=== PATIENT | male | born 1990 ===

== ENCOUNTER 2018-09-07 14:39 | Emergency (ER) | payer MEDICAID, OTHER ==
[2018-09-07 14:54] VITALS: RESP 18
--- NOTE | 2018-09-07 15:26 | C.PDOC ---
History Of Present Illness 28 y/o male presents to ED with c/o chronic low back pain for 5 months after injury at work. Patient states pain has been worse for 1 week radiating to left leg and denies taking pain medication, new injury, sensory changes, dysuria, bowel/bladder incontinence or any other complaints at this time. Time Seen by Provider: 09/07/18 14:50 Chief Complaint (Nursing): Back Pain History Per: Patient History/Exam Limitations: no limitations Onset/Duration Of Symptoms: Days Current Symptoms Are (Timing): Still Present Quality Of Discomfort: "Pain" Past Medical History Reviewed: Historical Data, Nursing Documentation, Vital Signs Vital Signs: Last Vital Signs Temp 97.9 F 09/07/18 14:51 Pulse 69 09/07/18 14:51 Resp 18 09/07/18 14:51 BP 155/84 H 09/07/18 14:51 Pulse Ox 96 09/07/18 14:51 - Medical History PMH: No Chronic Diseases Surgical History: No Surg Hx Family History: States: No Known Family Hx - Social History Hx Alcohol Use: Yes Hx Substance Use: No Review Of Systems Cardiovascular: Negative for: Chest Pain Respiratory: Negative for: Cough, Shortness of Breath Musculoskeletal: Positive for: Back Pain, Leg Pain Skin: Negative for: Rash Neurological: Negative for: Weakness, Numbness Physical Exam - Physical Exam Appears: Non-toxic, Other (In mild pain) Skin: Warm, Dry, No Rash Head: Atraumatic, Normacephalic Eye(s): bilateral: Normal Inspection Oral Mucosa: Moist Neck: Normal ROM, Supple Cardiovascular: Rhythm Regular Respiratory: Normal Breath Sounds, No Rales, No Rhonchi, No Wheezing Back: No CVA Tenderness, Paraspinal Tenderness (lumbar) Extremity: Normal ROM, Capillary Refill (<2 seconds), No Deformity Neurological/Psych: Oriented x3, Normal Speech, Normal Cognition Gait: Steady ED Course And Treatment O2 Sat by Pulse Oximetry: 96 (RA) Pulse Ox Interpretation: Normal Progress Note: Prednisone, Ibuprofen and Flexiril administered. Patient pain improved and discharged with follow up to PMD in 1-2 days Disposition Counseled Patient/Family Regarding: Diagnosis, Need For Followup, Rx Given - Disposition Referrals: [facility] [Outside] Disposition: HOME/ ROUTINE Disposition Time: 15:45 Condition: STABLE Additional Instructions: FOLLOW UP IN THE MEDICAL CLINIC IN 1-2 DAYS USE MEDICATIONS DIRECTED RETURN TO EMERGENCY ROOM IF SYMPTOMS BECOME WORSE SEGUIR EN LA CLNICA MDICA EN 1-2 BATES UTILICE MEDICAMENTOS PATRIC SE DIRIGE VUELVA A LA DESIRAE DE EMERGENCIA SI LOS SNTOMAS SE HACEN PE[place] Prescriptions: Cyclobenzaprine [Flexeril] 10 mg PO BID PRN #15 tab PRN Reason: Muscle Spasm Ibuprofen [Motrin Tab] 600 mg PO Q6 PRN #30 tab PRN Reason: fever/pain predniSONE [predniSONE Tab] 40 mg PO DAILY #6 tab Instructions: Low Back Pain (DC), Sciatica (DC) Forms: [employer] [employer] [facility] (Vietnamese) Print Language: GEORGIAN - Clinical Impression Clinical Impression: Chronic low back pain with left-sided sciatica - Scribe Statement The provider has reviewed the documentation as recorded by the Beniblinnea Cabezas All medical record entries made by the Beniblinnea were at my direction and personally dictated by me. I have reviewed the chart and agree that the record accurately reflects my personal performance of the history, physical exam, medical decision making, and the department course for this patient. I have also personally directed, reviewed, and agree with the discharge instructions and disposition.
[2018-09-07 15:54] VITALS: BP 137/75; PULSE 64; TEMP 98.5
[2018-09-07 18:48] VITALS: O2SAT 96
== END 2018-09-07 16:10 | disposition home or self-care (01) ==
LOC: C.ER 14:39
DX: G89.29 Other chronic pain (principal); M54.42 Lumbago with sciatica, left side